=== PATIENT | male | born 1990 | race Caucasian/White ===

== ENCOUNTER → 2017-07-18 | Outpatient (CLI) | payer BC ==
--- NOTE | 2017-07-18 10:51 | DIAGNOSTIC IMAGING REPORT ---
(BARIUM SWALLOW) ESOPHAGUS CLINICAL HISTORY: GLOBUS SENSATIONdysphagia COMPARISON STUDY: None FLUOROSCOPY TIME: 0 point minutes. FINDINGS: Patient initiates swallowing function well. No evidence for aspiration. Mild esophageal dysmotility and/or spasm. No evidence for aspiration. Gas esophageal junction is unremarkable. IMPRESSION: Mild esophageal irritability and/or spasm. 2. Study is otherwise negative. 3.. The barium Tablet passed easily to the stomach with no obstructive change. The above report was generated using voice recognition software. It may contain grammatical, syntax or spelling errors. Electronically signed by: Santos Poole M.D. 07/18/2017 10:50 AM Dictated Date/Time: 07/18/2017 10:49 AM
== END | disposition home or self-care (01) ==
LOC: C.RAD 09:18
PROVIDERS: ATTEND Nurse Practitioner
DX: F45.8 Other somatoform disorders (principal)